=== PATIENT | female | born 1980 | race Caucasian/White ===

== ENCOUNTER 2017-02-15 10:42 | Emergency (ER) | payer OTHER ==
[~2017-02-15] VITALS: Ht 170.2 cm; Wt 59.1 kg
[2017-02-15 10:42] VITALS: BP 127/72
[2017-02-15] MEDS ORDERED: NAPR500T3 PO (10:52)
[2017-02-15] MEDS ORDERED: FLOM5CAP PO (10:52)
[2017-02-15] MEDS ORDERED: OXYC1TAB23 PO (10:52)
[2017-02-15 12:14] LABS: BASO % 0.6 % (0.0-1.0); EOS # 0.1 K/mm3 (0.0-0.50); EOS % 1.3 % (0.0-3.0); LARGE UNSTAINED CELL # 0.1 K/mm3 (0.0-0.4); LARGE UNSTAINED CELL % 1.7 % (0.0-4.0); LYMPH # 1.7 K/mm3 (1.5-4.5); LYMPH % 37.2 % (24.0-44.0); MEAN CORPUSCULAR HGB CONC 33.2 g/dl (32.0-36.5); MEAN CORPUSCULAR VOLUME 93.3 fl (80.0-96.0); MONO # 0.3 K/mm3 (0.0-0.8); MONO % 6.2 % (0.0-5.0); NEUTROPHILS # 2.3 K/mm3 (1.8-7.7); NEUTROPHILS % 52.9 % (36.0-66.0); PLATELET COUNT, AUTOMATED 169 k/mm3 (150-450); WHITE BLOOD COUNT 4.4 K/mm3 (4.0-10.0)
[2017-02-15 12:32] LABS: ANION GAP 6 MEQ/L (8-16); BLOOD UREA NITROGEN 9 MG/DL (7-18); CALCIUM LEVEL 8.7 MG/DL (8.5-10.1); CARBON DIOXIDE LEVEL 30 MEQ/L (21-32); CHLORIDE LEVEL 106 MEQ/L (98-107); CREATININE FOR GFR 0.67 MG/DL (0.55-1.02); GLOMERULAR FILTRATION RATE > 60.0 (>60); GLUCOSE, FASTING 81 MG/DL (70-105); POTASSIUM SERUM 4.5 MEQ/L (3.5-5.1); SODIUM LEVEL 142 MEQ/L (136-145)
--- NOTE | 2017-02-15 18:07 | REP ---
Urinary tract sonography: History: Right flank pain. Question renal colic. Findings: Scanning at the level of the urinary bladder shows no abnormality. There is a 2.9 x 3.0 x 3.5 cm hypoechoic cystic lesion in the right ovary consistent with a hemorrhagic ovarian cyst. The right ovary measures 4.3 x 3.8 x 4.3 cm inclusive of the cyst. Renal cortical echogenicity pattern is normal and renal contours are smooth on both sides. No hydronephrosis is seen on either side. No cyst, calculus or mass is seen in either kidney. The right kidney measures 11.3 x 3.8 x 5.7 cm. Left renal dimensions are 10.3 x 5.7 x 4.6 cm. Impression: No evidence of hydronephrosis on either side. 3.5 cm hemorrhagic cyst seen in the right ovary. Otherwise unremarkable urinary tract sonogram. Signed by Miguel Angel Pimentel MD 02/19/2017 08:20 A
== END 2017-02-15 15:15 | disposition left against medical advice (07) ==
LOC: M ED 10:42
DX: R10.9 Unspecified abdominal pain (principal); N83.201 Unspecified ovarian cyst, right side; Z79.899 Other long term (current) drug therapy; Z53.21 Procedure and treatment not carried out due to patient leaving prior to being seen by health care provider

== ENCOUNTER 2018-12-28 07:06 | Emergency (ER) | payer OTHER ==
[~2018-12-28] VITALS: Ht 170.2 cm; Wt 59.1 kg
[~2018-12-28 07:06] MED LIST: FLOM0.4C39 PO; NAPR-885 PO; OXYC1TAB23 PO
[2018-12-28 07:45] LABS: BASO % 0.5 % (0.0-1.0); HEMOGLOBIN 13.6 g/dl (12.0-15.5); LYMPH % 24.5 % (24.0-44.0); MEAN CORPUSCULAR HEMOGLOBIN 31.6 pg (27.0-33.0); MONO # 0.2 10^3/uL (0.0-0.8); MONO % 5.9 % (0.0-5.0); NEUTROPHILS # 2.8 10^3/uL (1.8-7.7); NEUTROPHILS % 67.9 % (36.0-66.0); PLATELET COUNT, AUTOMATED 217 10^3/uL (150-450); WHITE BLOOD COUNT 4.1 10^3/uL (4.0-10.0)
[2018-12-28 08:17] LABS: BLOOD UREA NITROGEN 9 MG/DL (7-18); CALCIUM LEVEL 9.4 MG/DL (8.5-10.1); CARBON DIOXIDE LEVEL 26 MEQ/L (21-32); CHLORIDE LEVEL 107 MEQ/L (98-107); CPK CREATINE PHOSPHOKINASE 55 U/L (26-192); CREATININE FOR GFR 0.88 MG/DL (0.55-1.30); GLOMERULAR FILTRATION RATE > 60.0 (>60); GLUCOSE, FASTING 98 MG/DL (70-100); MB/CK RELATIVE INDEX 1.82 (< OR =4); POTASSIUM SERUM 4.2 MEQ/L (3.5-5.1); SODIUM LEVEL 140 MEQ/L (136-145); TROPONIN I < 0.02 NG/ML (< 0.10)
[2018-12-28] MEDS ORDERED: hydrOXYzine 25 MG TAB PO STA (08:21)
[2018-12-28] MEDS ORDERED: GI COCKTAIL 50ML BTL(HYOSCYAMINE/MAALOX/LIDOCAINE VISCOUS)(1:3:1) PO ONE (08:30)
--- NOTE | 2018-12-28 08:54 | REP ---
Chest x-ray: Two views. History: Pleuritic chest pain . Comparison study: No comparison chest x-ray. . Findings: The lungs are well inflated and free of infiltrate. The pleural angles are sharp. The heart size is normal. Pulmonary vasculature is not increased. No significant bony abnormality is seen. Impression: Negative chest x-ray. Electronically Signed by Miguel Angel Pimentel MD 12/28/2018 08:46 A
[2018-12-28] MEDS ORDERED: VIST25CA PO (09:34)
[2018-12-28] MEDS ORDERED: OMEP-218 PO (09:34)
[2018-12-28 09:45] VITALS: BP 121/75
[2018-12-28] MEDS ORDERED: OMEPRAZOLE 20 MG CAP PO ONE (09:45)
--- NOTE | 2018-12-29 17:10 | ECGEPIP ---
[facility] - ED Test Date: 2018-12-28 Pat Name: JUANITA CAMPBELL Department: Room: - Gender: Female Compensation Coordinator: MARE : 1980 Requested By: RODOLFO Rubio Order Number: [id number] Reading MD: Faustino Baumann Measurements Intervals [place] Rate: 68 P: 72 WV: 112 QRS: 84 QRSD: 81 T: 31 QT: 441 QTc: 471 Interpretive Statements SINUS RHYTHM WITH SINUS ARRHYTHMIA WITH SHORT WV INTERVAL Nonspecific ST-T wave abnormalities Prolonged QTc interval Comparison tracing not on file Electronically Signed on 12-29-2018 17:10:13 EDT by Faustino Baumann
== END 2018-12-28 09:47 | disposition home or self-care (01) ==
LOC: M ED 07:06
DX: K21.9 Gastro-esophageal reflux disease without esophagitis (principal); F41.9 Anxiety disorder, unspecified; I49.9 Cardiac arrhythmia, unspecified; Z98.82 Breast implant status; Z97.5 Presence of (intrauterine) contraceptive device